=== PATIENT | female | born 1990 | race Caucasian/White ===

== ENCOUNTER 2017-01-18 06:09 | Emergency (ER) | payer SELFPAY ==
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
[2017-01-18 06:32] LABS: BASOPHIL # 0.1 K/uL (0.0-0.2); BASOPHIL % 0.4 %; EOSINOPHIL # 0.1 K/uL (0.0-0.5); EOSINOPHIL % 0.6 %; HEMATOCRIT 47.9 % (33.0-46.0); HEMOGLOBIN 16.1 g/dL (11.0-15.0); IMMATURE GRANULOCYTE % 0.3 %; LYMPHOCYTE # 4.5 K/uL (0.8-4.0); LYMPHOCYTE % 32.7 %; MCH 31.3 pg (27.0-34.0); MCHC 33.6 gm/dL (32.0-36.5); MONOCYTE # 0.8 K/uL (0.0-1.0); MONOCYTE % 5.6 %; MPV 11.8 fl (9.4-12.4); NEUTROPHIL # (ANC) 8.4 K/uL (1.8-7.8); NEUTROPHIL % 60.4 %; NRBC % 0 /100WBC (0-0.00); PLATELET COUNT 265 K/uL (150-450); RDW-CV 11.8 % (11.9-14.6); WBC 13.9 K/uL (4.0-11.0)
[2017-01-18 06:36] LABS: RBC 5.15 M/uL (3.50-5.00)
[2017-01-18 06:52] LABS: PROTIME 10.7 SECONDS (9.6-11.1); PTT 27 SECONDS (25-32)
[2017-01-18 07:01] LABS: ALBUMIN 4.1 gm/dL (3.5-5.0); ALK PHOS 104 IU/L (33-138); ALT 44 IU/L (12-78); AST 20 IU/L (10-40); BLOOD UREA NITROGEN 8 mg/dL (6-24); CALCIUM 8.3 mg/dL (8.5-10.5); CHLORIDE 109 mMol/L (96-110); CO2 22 mMol/L (22-32); CPK 165 IU/L (21-215); CREATININE 0.9 mg/dL (0.5-1.1); ESTIMATED GFR (MDRD EQUATION) > 60; MAGNESIUM 2.2 mg/dL (1.3-2.6); SODIUM 144 mMol/L (135-145); TOTAL BILIRUBIN 0.3 mg/dL (0.0-1.5); TOTAL PROTEIN 8.1 g/dL (6.0-8.4)
[2017-01-18 07:21] LABS: BARBITURATE NEGATIVE (NEGATIVE); COCAINE NEGATIVE (NEGATIVE); OPIATES NEGATIVE (NEGATIVE)
[2017-01-18 07:35] LABS: AMPHETAMINE NEGATIVE (NEGATIVE)
== END 2017-01-18 10:19 | disposition disaster alternative care site (69) ==
LOC: GMED 06:09
PROVIDERS: Family Medicine
PROC: 0BH17EZ Insertion of Endotracheal Airway into Trachea, Via Natural or Artificial Opening (ICD-10-PCS; principal; 2017-01-18)
DX: J96.01 Acute respiratory failure with hypoxia (principal); F10.129 Alcohol abuse with intoxication, unspecified; Z88.5 Allergy status to narcotic agent; Z88.6 Allergy status to analgesic agent; Z88.8 Allergy status to other drugs, medicaments and biological substances; Z98.890 Other specified postprocedural states; Y90.0 Blood alcohol level of less than 20 mg/100 ml
CPT/HCPCS: G0480; J2250; J2405; J3010; J7030; J7060

== ENCOUNTER → 2017-01-18 | Outpatient (CLI) | payer SELFPAY ==
[~2017-01-18] MED LIST: FEOSOL325 MG PO; FLEXERIL10 MG PO; MOTRIN800 MG PO; NORCO 5-325 MG1 TAB PO; OXYCONTIN EXTEN10 MG PO; PERCOCET 5-3251 EACH PO; PRENATAL 1+1)(P1 TAB PO; TUMS EX PO
== END | disposition disaster alternative care site (69) ==
LOC: GAMB 05:44
DX: R55 Syncope and collapse (principal)
CPT/HCPCS: A0422; A0425; A0427; A0434

== ENCOUNTER → 2017-01-22 | Outpatient (CLI) | payer OTHER, SELFPAY ==
[2017-01-22 11:49] LABS: MAGNESIUM 2.3 mg/dL (1.3-2.6); PHOSPHORUS 3.2 mg/dL (2.5-4.9)
== END | disposition disaster alternative care site (69) ==
LOC: LFPA 11:11
PROVIDERS: Family Medicine
DX: R55 Syncope and collapse (principal)